=== PATIENT | male | born 2000 | race Caucasian/White ===

== ENCOUNTER → 2025-03-01 06:44 | Outpatient (REF) | payer BC, SELFPAY ==
[2025-03-01 08:06] LABS: % Basophils 0.5 % (0-2); % Eosinophils 2.6 % (0-6); % Immature Granulocytes 0.2 % (0-0.5); % Lymphocytes 39.2 % (20.5-51.1); % Monocytes 8.6 % (1.7-9.3); % Neutrophils 48.9 % (42.2-75.2); Absolute Eosinophils 0.1 10^3/uL (0-0.7); Absolute Lymphocytes 2.2 10^3/uL (1.2-3.4); Absolute Monocytes 0.5 10^3/uL (0.1-0.6); Absolute Neutrophils 2.7 10^3/uL (1.4-6.5); Hematocrit 45.6 % (39.0-52.0); Hemoglobin 15.5 g/dL (13.0-18.0); Mean Corpuscular Hgb 28.7 pg (27.0-31.0); Mean Corpuscular Volume 84.4 fL (80.0-94.0); Mean Platelet Volume 9.2 fL (7.4-10.4); Nucleated Red Blood Cells % 0 % (-); Platelet Count 317 10^3/uL (130-400); Red Cell Dist. Width 12.3 % (11.5-14.5); White Blood Cell Count 5.5 10^3/uL (4.8-10.8)
[2025-03-01 08:23] LABS: ALT (SGPT) 24 U/L (0-50); AST (SGOT) 26 U/L (17-59); Albumin 5.2 g/dl (3.5-5.0); Alkaline Phosphatase 51 U/L (38-126); Blood Urea Nitrogen 11 mg/dl (9-20); Calcium 10.1 mg/dl (8.4-10.2); Carbon Dioxide 29 mmol/L (22-30); Chloride 105 mmol/L (98-107); Glucose 101 mg/dl (70-99); HDL Cholesterol 71 mg/dl; LDL Cholesterol, Calculated 109 mg/dl; Potassium 4.5 mmol/L (3.5-5.1); Sodium 143 mmol/L (135-145); Total Cholesterol 193 mg/dl (50-199); Total Protein 8.1 g/dl (6.3-8.2); Triglyceride 68 mg/dl (10-149); Very Low Density Lipoprotein 13 mg/dl (0-30); eGFR > 60.00
[2025-03-01 08:46] LABS: TSH Reflex To Free T4 1.39 uIU/ml (0.47-4.68)
== END ==
LOC: REG 06:44
PROVIDERS: ATTENDING PHYSICIAN Family Medicine
DX: Z00.00 Encounter for general adult medical examination without abnormal findings (principal)
CPT/HCPCS: 36415; 80053; 80061; 84443; 85025

== ENCOUNTER 2025-05-25 20:18 | Emergency (ER) | payer BC, SELFPAY ==
[2025-05-25 20:18] VITALS: BMI 30.5
[2025-05-25 20:21] VITALS: BP 142/82
--- NOTE | 2025-05-25 21:09 | ED.MUSCINJ ---
HPI-Injury
General
Chief Complaint: Musculo-Skeletal Complaint
Source: patient
Exam Limitations: none
Time Seen by Provider: 05/25/25 20:52
Nursing documentation reviewed up to this point in time: agreed with
History of Present Illness-Injury
Initial Injury comments:
25 yo male rolled his left foot walking at neighbor's yard about 2 hours ago. Now with pain lateral aspect left foot
Past History
Past History
ED Past Medical History: Other (ADHD)
ED Past Surgical History: None
Social History
Tobacco: Non-smoker
Personal: Single
Living: with family
Employment: Employed
Review of Systems
Review of Systems
Allergies reviewed?: Yes
All Other Systems: ROS reviewed and negative except as documented in HPI and ROS
Musculoskeletal: Reports other (Left foot pain after injury)
Musculoskeletal Injury Exam
Musculoskeletal Injury Exam
Right Lateral Foot:
Pain with Movement?: Mild
Tender to palpation?: Moderate
Soft tissue swelling?: Mild
Malalignment/deformity?: No
Range of motion: Full
Distal skin color and temperature: normal-warm & good color
Capillary Refill: normal
Normal distal neurovascular exam?: Yes
Phy Exam
Physical Exam
Physical Exam:
PHYSICAL EXAMINATION:
General: no apparent distress, not acutely ill
Neuro: alert and oriented.
Psychiatric: well kept. interactive and cooperative
Musculoskeletal: Moves with ease
Skin: Warm, pink.
Injury Course
Orders/Labs/Results
Orders:
Orders
05/25/25 20:20
Foot, Left 3 View [CR Foot - Left Min 3 Views] Urgent
Comment:
Reason For Exam: pain injury
05/25/25 21:08
Ortho Boot Left- Treatment ONCE
Short or tall?: Short
MDM/Problems Addressed
Differential Diagnosis Includes:
fracture vs sprain
MDM/Problems Addressed:
25 yo male rolled his left foot walking at neighbor's yard about 2 hours ago. Now with pain lateral aspect left foot
Xray left foot read by me: nondisplaced fracture base proximal 5th metatarsal
Ortho boot applied.
Referred to orthopedics
*Pulse Oximetry
SaO2: 100
Oxygen Mode of Delivery: Room air
Patient hypoxic: not evaluated
*Critical Care Note
Total Time (30-74mins, 75-104mins- exclusive of procedures): Not Applicable
ED Attending Note
-
Portions of this chart may have been created with voice recognition software.� Occasional wrong word or��sound alike� substitutions may have occurred due to the inherent limitations of voice recognition software.
Discharge Plan
Departure
Patient Disposition: Home (Routine Discharge)
Date of Disposition: 05/25/25
Time of Disposition: 21:14
Patient with high blood pressure during this ER visit?: No
Condition: Good
Discharge Problem:
Closed fracture of base of fifth metatarsal bone of left foot
Instructions: Using Cold for Pain, Foot Fracture ED
Prescriptions:
No Action
No Current Medications
0
Referrals:
Jasvir Lam MD [Active, Orthopedics] - Call in 1-3 days for appt
Stand Alone Forms: Return to Work
Activity Restrictions/Additional Instructions:
As we discussed, keep the orthopedic boot on until you see the orthopedic doctor.
While at rest you may remove the boot and apply cold compress 20 minutes off and on today and tomorrow is much as you can
Tylenol or ibuprofen as needed for pain.
Call the orthopedic doctors office Tuesday morning and make an appointment for sometime this week.
If you want to return to work on Tuesday, you may, wearing the Ortho boot, and light duty only
Interventions
Interventions:
*Risk Screen - Suicide Last Done: 05/25/25 20:21
*General Assessment Last Done: 05/25/25 21:02
*Neglect/Abuse Screening Last Done: 05/25/25 20:21
*ED- Fall Risk Assessment Last Done: 05/25/25 21:02
*ED COVID-19 Vaccine History Last Done: 05/25/25 21:35
*Nursing Disposition Last Done: 05/25/25 21:35
ED-Musculoskeletal Assessment Last Done: 05/25/25 21:01
Discharge Date and Time
Discharge Date/Time: 05/25/25 21:36
Print Language: MAORI
== END 2025-05-25 21:36 | disposition home or self-care (01) ==
LOC: EMR 20:18
PROVIDERS: EMERGENCY PHYSICIAN Emergency Medicine; FAMILY PHYSICIAN Family Medicine
DX: S92.355A Nondisplaced fracture of fifth metatarsal bone, left foot, initial encounter for closed fracture (principal); X58.XXXA Exposure to other specified factors, initial encounter; F90.9 Attention-deficit hyperactivity disorder, unspecified type
CPT/HCPCS: 99283; 73630